=== PATIENT | female | born 1985 | race Caucasian/White ===

== ENCOUNTER 2017-10-31 17:53 | Emergency (ER) | payer OTHER ==
[~2017-10-31] VITALS: Ht 165.1 cm; Wt 94.5 kg
[2017-10-31 18:05] VITALS: TEMP 37.3
[2017-10-31] MEDS ORDERED: SODIUM CHLORIDE 0.9% 1000ML 1,000 ML IV STA (18:39)
[2017-10-31] MEDS ORDERED: KETOROLAC TROMETHAMINE 30 MG/ML VIAL IV STA (18:39)
[2017-10-31] MEDS ORDERED: GI COCKTAIL PO STA (18:39)
[2017-10-31] MEDS ORDERED: ONDANSETRON INJ 2 MG/ML 2 ML VIAL IV STA (18:39)
[2017-10-31 18:45] VITALS: Ht 165.1 cm; Wt 94.5 kg
[2017-10-31 19:00] VITALS: O2SAT 96
[2017-10-31 19:08] LABS: BASO % 0.3 %; BASO ABS # 0.02 K/uL (0-0.2); EOS % 1.1 %; EOS ABS # 0.08 K/uL (0-0.5); HEMATOCRIT 39.3 % (37-47); HEMOGLOBIN 13.4 g/dL (12.0-16.0); IG# 0.02 K/uL (0.00-0.02); LYMPH % 8.3 %; LYMPH ABS # 0.62 K/uL (1.2-3.4); MEAN CELL VOLUME 89.3 fL (80-100); MEAN CORPUSCULAR HEMOGLOBIN 30.5 pg (25-34); MEAN CORPUSCULAR HGB CONC 34.1 g/dl (32-36); MEAN PLATELET VOLUME 10.5 fL (7.4-10.4); MONO % 5.2 %; MONO ABS # 0.39 K/uL (0.11-0.59); NEUT % 84.8 %; NEUT ABS # 6.34 K/uL (1.4-6.5); PLATELET COUNT 287 K/uL (130-400); RED CELL DISTRIBUTION WIDTH CV 13.1 % (11.5-14.5); RED CELL DISTRIBUTION WIDTH SD 43.1 fL (36.4-46.3); WHITE BLOOD COUNT 7.47 K/uL (4.8-10.8)
--- NOTE | 2017-10-31 19:11 | DIAGNOSTIC IMAGING REPORT ---
CHEST ONE VIEW PORTABLE CLINICAL HISTORY: EVALUATE WEAKNESS dyspnea COMPARISON STUDY: No previous studies for comparison. FINDINGS: The bones soft tissues and hemidiaphragms are normal. The cardiomediastinal silhouette is normal. The lungs are clear. The pulmonary vasculature is normal. IMPRESSION: Negative chest. The above report was generated using voice recognition software. It may contain grammatical, syntax or spelling errors. Electronically signed by: Jhonny Felix M.D. 10/31/2017 7:09 PM Dictated Date/Time: 10/31/2017 7:08 PM
[2017-10-31] MEDS ORDERED: LIDOCAINE HCL 2% VISC SOLN 20 ML UDC ONE (19:12)
[2017-10-31] MEDS ORDERED: ALUMINUM/MAGNESIUM SUSP 30 ML UDC ONE (19:12)
[2017-10-31] MEDS ORDERED: OPTIRAY 320 IV PRN (19:15)
[2017-10-31] MEDS ORDERED: VORT10TA12 PO (19:26)
[2017-10-31 19:27] LABS: BLOOD UREA NITROGEN 10 mg/dl (7-18); CALCIUM 8.5 mg/dl (8.5-10.1); CARBON DIOXIDE 25 mmol/L (21-32); CREATININE 0.79 mg/dl (0.60-1.20); GLUCOSE 81 mg/dl (70-99); LIPASE 135 U/L (73-393); POTASSIUM 3.3 mmol/L (3.5-5.1); SODIUM 139 mmol/L (136-145)
[2017-10-31 19:53] LABS: PTT PATIENT 26.2 SECONDS (21.0-31.0)
--- NOTE | 2017-10-31 19:58 | DIAGNOSTIC IMAGING REPORT ---
HEAD WITHOUT CONTRAST (CT) CT DOSE: 1421.63 mGy.cm HISTORY: Status mental status change LUE weakness, shoulder/neck pain TECHNIQUE: Multiaxial CT images of the head were performed without the use of intravenous contrast. A dose lowering technique was utilized adhering to the principles of ALARA. Comparison: None. Findings: The paranasal sinuses and mastoid air cells are clear. The calvarium and skull base are intact. The ventricles and sulci are within normal limits. There is no mass, hematoma, midline shift, or acute infarct. Impression: No acute intracranial abnormality. The above report was generated using voice recognition software. It may contain grammatical, syntax or spelling errors. Electronically signed by: Jhonny Felix M.D. 10/31/2017 7:56 PM Dictated Date/Time: 10/31/2017 7:55 PM
--- NOTE | 2017-10-31 20:00 | DIAGNOSTIC IMAGING REPORT ---
CERVICAL SPINE W/O CT DOSE: HISTORY: Pain L sided neck pain w/ LUE weakness TECHNIQUE: Multiaxial CT images of the cervical spine were performed and reformatted in the sagittal and coronal plane without the use of contrast. A dose lowering technique was utilized adhering to the principles of ALARA. COMPARISON: None. FINDINGS: No fractures. No subluxation. Prevertebral soft tissues and the C1-C2 interval are intact. No pneumothorax. IMPRESSION: No fractures within the cervical spine. Normal study The above report was generated using voice recognition software. It may contain grammatical, syntax or spelling errors. Electronically signed by: Jhonny Felix M.D. 10/31/2017 7:58 PM Dictated Date/Time: 10/31/2017 7:58 PM
--- NOTE | 2017-10-31 20:04 | DIAGNOSTIC IMAGING REPORT ---
NECK ANGIO WITH CONTRAST HISTORY: Mental status change. Weakness TECHNIQUE: Multiaxial CT images of the neck were performed following the intravenous administration of contrast to evaluate the major cervical vessels. Maximum intensity projection images were also obtained. All measurements were calculated based on NASCET criteria. A dose lowering technique was utilized adhering to the principles of ALARA. COMPARISON STUDY: None. FINDINGS: The aortic arch and proximal great vessels are widely patent. There is no significant stenosis, occlusion, or dissection identified within the bilateral common carotid, internal carotid, or vertebral arteries. IMPRESSION: No significant stenosis, occlusion, or dissection identified within the carotid or vertebral arteries. The above report was generated using voice recognition software. It may contain grammatical, syntax or spelling errors. Electronically signed by: Jhonny Felix M.D. 10/31/2017 8:03 PM Dictated Date/Time: 10/31/2017 8:03 PM
--- NOTE | 2017-10-31 20:09 | DIAGNOSTIC IMAGING REPORT ---
HEAD ANGIO WITH CONTRAST CLINICAL HISTORY: Weakness Mental status change TECHNIQUE: Transaxial acquisition with multi axial reformatted images COMPARISON STUDY: None FINDINGS: Intracranial vasculature is unremarkable. All components of the anterior middle and posterior cerebral circulation are unremarkable. There is no evidence for an aneurysmal process. There is no evidence for dissection. IMPRESSION: Normal study The above report was generated using voice recognition software. It may contain grammatical, syntax or spelling errors. Electronically signed by: Jhonny Felix M.D. 10/31/2017 8:08 PM Dictated Date/Time: 10/31/2017 8:04 PM
[2017-10-31] MEDS ORDERED: TRAMADOL HCL 50 MG TAB PO STA (20:18)
[2017-10-31] MEDS ORDERED: CYCLOBENZAPRINE HCL 5 MG TAB PO STA (20:18)
--- NOTE | 2017-10-31 20:57 | EMERGENCY ROOM VISIT NOTE ---
History Report prepared by Macyibsteve: Sarkis Pena Under the Supervision of: Dr. Quentin Carpenter M.D. First contact with patient: 18:22 Chief Complaint: DIZZY Stated Complaint: CHEST PAIN,PUKING,DIZZY,LIGHTHEADED,TROUBLEBREATH Nursing Triage Summary: Pt c/o dizziness, fatigue and puking at 0630. 0800 began having mid chest pain into left arm and numb is going numb and fingers are tingling. Seen at [place] and gave her and IV, Blood work and did CXR History of Present Illness The patient is a 32 year old white female with a past medical history of anxiety and depression who presents to the ED with a cc of persistent dizziness beginning this morning. Positive chest pain, vomiting, SOB, left arm numbness, diarrhea, and lightheadedness. She has vomited eight times total. Laying down worsens her symptoms. Negative urinary symptoms. She was seen at the [facility] Emergency Department earlier today for similar symptoms. She states "they didn't do shit for me" and states "they only checked me for pneumonia and bronchitis". She had blood work, chest x-ray and ECG done there which were all normal. Source of History: patient Onset: This morning Quality: other (dizziness) Timing: other (persistent) Modifying Factors (Worsening): other (laying down) Associated Symptoms: + chest pain, + SOB, + vomiting, + diarrhea, + numbness (left arm), No urinary symptoms Note: Positive: lightheadedness. Review of Systems See HPI for pertinent positives and negatives. A total of ten systems were reviewed and were otherwise negative. Past Medical & Surgical Medical Problems: (1) Anxiety (2) Asthma (3) Depression Family History No pertinent family history stated. Social History Smoking Status: Former Smoker Housing Status: lives with family Current/Historical Medications Scheduled Vortioxetine HBr (Trintellix), Unknown Dose PO DAILY Allergies Coded Allergies: BEE STING (Unverified Allergy, Severe, SWELLING, 10/31/17) Nylon (Unverified Allergy, Mild, RASH, 10/31/17) Bupropion (Unverified Adverse Reaction, Unknown, A CHILD, 10/31/17) Escitalopram (Unverified Adverse Reaction, Unknown, A CHILD, 10/31/17) Physical Exam Vital Signs Date Time Temp Pulse Resp B/P (MAP) Pulse Ox O2 Delivery O2 Flow Rate FiO2 10/31/17 21:04 78 17 115/60 97 10/31/17 20:13 77 17 100/59 96 Room Air 10/31/17 19:19 81 10/31/17 19:00 96 Room Air 10/31/17 18:05 37.3 99 17 116/64 97 Room Air Physical Exam GENERAL: Awake, alert, well-appearing, NAD HENT: Normocephalic, atraumatic. EYES: Normal conjunctiva. Sclera non-icteric. No anisocoria. PERRL bilaterally. NECK: Supple. No nuchal rigidity. FROM. RESPIRATORY: CTAB, no rhonchi, wheezing, crackles CARDIAC: RRR, no MRG ABDOMEN: Soft, NTND, BS+ MSK: No chest wall TTP, no LE edema NEURO: GCS 15, CN 2-12 intact, moves all 4s on command. 5/5 RUE strength. 4/5 LUE strength with flexion and extension. Decreased sensation in the ulnar distribution. Can feel in the median and radial. States feels "tingling". Proprioception intact in LUE. 5/5 bilateral LE strength. No sensory deficit. SKIN: No rash or jaundice noted. Medical Decision & Procedures ER Provider Diagnostic Interpretation: Radiology results as stated below per my review and radiologist interpretation: CHEST ONE VIEW PORTABLE FINDINGS: The bones soft tissues and hemidiaphragms are normal. The cardiomediastinal silhouette is normal. The lungs are clear. The pulmonary vasculature is normal. IMPRESSION: Negative chest. The above report was generated using voice recognition software. It may contain grammatical, syntax or spelling errors. Electronically signed by: Jhonny Felix M.D. 10/31/2017 7:09 PM HEAD WITHOUT CONTRAST (CT) Findings: The paranasal sinuses and mastoid air cells are clear. The calvarium and skull base are intact. The ventricles and sulci are within normal limits. There is no mass, hematoma, midline shift, or acute infarct. Impression: No acute intracranial abnormality. The above report was generated using voice recognition software. It may contain grammatical, syntax or spelling errors. Electronically signed by: Jhonny Felix M.D. 10/31/2017 7:56 PM CERVICAL SPINE W/O FINDINGS: No fractures. No subluxation. Prevertebral soft tissues and the C1-C2 interval are intact. No pneumothorax. IMPRESSION: No fractures within the cervical spine. Normal study The above report was generated using voice recognition software. It may contain grammatical, syntax or spelling errors. Electronically signed by: Jhonny Felix M.D. 10/31/2017 7:58 PM NECK ANGIO WITH CONTRAST FINDINGS: The aortic arch and proximal great vessels are widely patent. There is no significant stenosis, occlusion, or dissection identified within the bilateral common carotid, internal carotid, or vertebral arteries. IMPRESSION: No significant stenosis, occlusion, or dissection identified within the carotid or vertebral arteries. The above report was generated using voice recognition software. It may contain grammatical, syntax or spelling errors. Electronically signed by: Jhonny Felix M.D. 10/31/2017 8:03 PM HEAD ANGIO WITH CONTRAST FINDINGS: Intracranial vasculature is unremarkable. All components of the anterior middle and posterior cerebral circulation are unremarkable. There is no evidence for an aneurysmal process. There is no evidence for dissection. IMPRESSION: Normal study The above report was generated using voice recognition software. It may contain grammatical, syntax or spelling errors. Electronically signed by: Jhonny Felix M.D. 10/31/2017 8:08 PM Laboratory Results 10/31/17 18:50 Red Blood Count 4.40, Mean Corpuscular Volume 89.3, Mean Corpuscular Hemoglobin 30.5, Mean Corpuscular Hemoglobin Concent 34.1, Mean Platelet Volume 10.5, Neutrophils (%) (Auto) 84.8, Lymphocytes (%) (Auto) 8.3, Monocytes (%) (Auto) 5.2, Eosinophils (%) (Auto) 1.1, Basophils (%) (Auto) 0.3, Neutrophils # (Auto) 6.34, Lymphocytes # (Auto) 0.62, Monocytes # (Auto) 0.39, Eosinophils # (Auto) 0.08, Basophils # (Auto) 0.02 10/31/17 18:50 Test 10/31/17 18:50 10/31/17 19:32 White Blood Count 7.47 K/uL (4.8-10.8) Red Blood Count 4.40 M/uL (4.2-5.4) Hemoglobin 13.4 g/dL (12.0-16.0) Hematocrit 39.3 % (37-47) Mean Corpuscular Volume 89.3 fL (80-100) Mean Corpuscular Hemoglobin 30.5 pg (25-34) Mean Corpuscular Hemoglobin Concent 34.1 g/dl (32-36) Platelet Count 287 K/uL (130-400) Mean Platelet Volume 10.5 fL (7.4-10.4) Neutrophils (%) (Auto) 84.8 % Lymphocytes (%) (Auto) 8.3 % Monocytes (%) (Auto) 5.2 % Eosinophils (%) (Auto) 1.1 % Basophils (%) (Auto) 0.3 % Neutrophils # (Auto) 6.34 K/uL (1.4-6.5) Lymphocytes # (Auto) 0.62 K/uL (1.2-3.4) Monocytes # (Auto) 0.39 K/uL (0.11-0.59) Eosinophils # (Auto) 0.08 K/uL (0-0.5) Basophils # (Auto) 0.02 K/uL (0-0.2) RDW Standard Deviation 43.1 fL (36.4-46.3) RDW Coefficient of Variation 13.1 % (11.5-14.5) Immature Granulocyte % (Auto) 0.3 % Immature Granulocyte # (Auto) 0.02 K/uL (0.00-0.02) Anion Gap 8.0 mmol/L (3-11) Est Creatinine Clear Calc Drug Dose 117.3 ml/min Estimated GFR () 115.6 Estimated GFR (Non- 99.8 BUN/Creatinine Ratio 12.1 (10-20) Calcium Level 8.5 mg/dl (8.5-10.1) Magnesium Level 1.9 mg/dl (1.8-2.4) Troponin I < 0.015 ng/ml (0-0.045) Pro-B-Type Natriuretic Peptide 11 pg/ml (0-450) Lipase 135 U/L (73-393) Thyroid Stimulating Hormone (TSH) 0.825 uIu/ml (0.300-4.500) Prothrombin Time 10.8 SECONDS (9.0-12.0) Prothromb Time International Ratio 1.0 (0.9-1.1) Activated Partial Thromboplast Time 26.2 SECONDS (21.0-31.0) Partial Thromboplastin Ratio 1.0 Date/Time Source Procedure Growth Status 10/31/17 20:10 Urine , Clean Catch Urine Culture - Final THREE TYPES OF ORGANISMS PRESENT, ALL... Complete Laboratory results reviewed by me Medications Administered Medications (Trade) Dose Ordered Sig/Rebekah Route Start Time Stop Time Status Last Admin Dose Admin Sodium Chloride 1,000 ml @ 999 mls/hr Q1H1M STAT IV 10/31/17 18:39 10/31/17 19:39 DC 10/31/17 19:15 999 MLS/HR Ondansetron HCl (Zofran Inj) 4 mg NOW STAT IV 10/31/17 18:39 10/31/17 18:45 DC 10/31/17 19:16 4 MG Ketorolac Tromethamine (Toradol Inj) 30 mg NOW STAT IV 10/31/17 18:39 10/31/17 18:45 DC 10/31/17 19:16 30 MG Lidocaine HCl (Viscous Lidocaine 2% Soln) 20 ml STK-MED ONCE .ROUTE 10/31/17 19:12 10/31/17 19:13 DC 10/31/17 19:16 20 ML Al Hydroxide/Mg Hydroxide (Maalox Susp) 30 ml STK-MED ONCE .ROUTE 10/31/17 19:12 10/31/17 19:13 DC 10/31/17 19:16 30 ML Tramadol HCl (Ultram Tab) 25 mg NOW STAT PO 10/31/17 20:18 10/31/17 20:28 DC 10/31/17 20:32 25 MG Cyclobenzaprine HCl (Flexeril Tab) 5 mg ONE STAT PO 10/31/17 20:18 10/31/17 20:28 DC 10/31/17 20:32 5 MG ECG Per My Interpretation Indication: chest pain Rate (beats per minute): 88 Rhythm: normal sinus Findings: T-wave inversion (lead 3), other (Normal intervals. Normal axis. ) ED Course 1829: The patient was evaluated in room C1B. A complete history and physical exam was performed. 2018: I reevaluated the patient. Her weakness has improved, but states that she still feels unwell overall. Discussed results and discharge instructions ( including importance of outpatient follow-up): she verbalized understanding and agreement. The patient is ready for discharge. Medical Decision The patient is a 32 year old white female with a past medical history of anxiety and depression who presents to the ED with a cc of persistent dizziness beginning this morning. Differential diagnosis: Etiologies such as radiculopathy, ACS, autoimmune process, metabolic, infection , hypo/hyperglycemia, electrolyte abnormalities, cardiac sources, intracerebral event, toxicologic, neurologic, as well as others were entertained. Patient seen and evaluted at bedside. Seen at [facility] in [place] earlier today w/ negative work up: CXR, labs, flu, etc. Patient states still has LÓPEZ, tingling in LUE and chest discomfort. Patient non smoker. No recent car/plan travel. Patient fairly well appearing. Patient w/ mild decreased strength in LUE. Good pulses. Compartments soft. Well appearing. No risk factors for ACS except body habitus. Blood work completed, EKG, CT brain, CTA head/neck. No h/o of autoimmune d/o or h/o MS. Blood work very reassuring. LUE deficit ?gone now as her strength is improved. ?related to effort or maybe decreased because of pain. HEART score < 4, less likely ACS. CT brain and CTAs negative for acute problem. Given negative imaging studies, reassuring lab work, and improving LUE weakness I don't believe TIA, CVA, dissection. Also don't believe ACS given non ischemic EKG, neg trop, and total duration of symptoms. Patient feeling mildly improved. ?complicated migraine. Don't believe MRI necessary at this time but may obtain one as outpatient. Told to f/u w/ PCP. Patient agreeable w/ POC, all questions answered, d/c'ed to home. Medication Reconcilliation Current Medication List: was personally reviewed by me Blood Pressure Screening Patient's blood pressure: Normal blood pressure Blood pressure disposition: Did not require urgent referral Impression Primary Impression: Dizziness Additional Impressions: Hypokalemia Tingling of left upper extremity Scribe Attestation The scribe's documentation has been prepared under my direction and personally reviewed by me in its entirety. I confirm that the note above accurately reflects all work, treatment, procedures, and medical decision making performed by me. Departure Information Dispostion Home / Self-Care Referrals No Doctor, Assigned (PCP) Patient Instructions ED Viral Syndrome, My [facility] Additional Instructions Please return to the emergency department if you have worsening or recurrent symptoms not amenable to at-home treatment. Please call for a follow-up appointment with her primary care physician. Please take your medications as prescribed. If you have other concerns and/or complaints please feel free to also call your primary care physician's office or return the ED for further evaluation, management, and treatment. You may take 600 mg Ibuprofen every 6 hours as needed for pain with food for no more than 2 consecutive days. You may take tylenol 1000 mg every 6 hours as needed for pain. You may take motrin and tylenol separately or at the same time. Please consider warm compresses and ice packs. You may also consider topicals like icy hot or BenGay. If you do have persistent symptoms please follow-up with your PCP for further evaluation and treatment. Take your medications as prescribed. If taking an antibiotic consider taking a probiotic and/or eating yogurt, but at the least, please take with food as it can cause upset stomach. If culture results are not available at discharge, if they are positive for concern of infection, you will be informed of the results as soon as they are available. If you were seen between 11pm and 7AM all radiology reads will be re-read by our in house staff. If any major discrepancies are discovered, you will be notified. You have been examined and treated today on an emergency basis only. This is not a substitute for, or an effort to provide, complete comprehensive medical care. It is impossible to recognize and treat all injuries or illnesses in a single emergency department visit. It is therefore important that you follow up closely with [facility], your PCP, and/or your specialist(s). Call as soon as possible for an appointment. Thank you for your time and consideration. I look forward to speaking with you again soon. Please don't hesitate to call us if you have any questions. Problem Qualifiers
[2017-10-31 21:04] VITALS: BP 115/60; PULSE 78; O2SAT 97
== END 2017-10-31 21:04 | disposition home or self-care (01) ==
LOC: C.EDB 17:56 → C.EDC 21:04
DX: R42 Dizziness and giddiness (principal); E87.6 Hypokalemia; R20.2 Paresthesia of skin; F41.9 Anxiety disorder, unspecified; F32.9 Major depressive disorder, single episode, unspecified; J45.909 Unspecified asthma, uncomplicated; Z87.891 Personal history of nicotine dependence; Z79.899 Other long term (current) drug therapy; Z91.030 Bee allergy status; Z88.8 Allergy status to other drugs, medicaments and biological substances